=== PATIENT | male | born 1940 | race Caucasian/White ===

== ENCOUNTER 2018-11-01 06:18 | Inpatient (IN) | payer MEDICARE ==
[2018-11-01] MEDS ORDERED: Ondansetron PF 4 MG/2 ML Vial ONE (06:30)
[2018-11-01 06:44] LABS: #Eosinphils 0.1 thou/uL (0.0-0.7); #Lymphocytes 1.1 thou/uL (1.20-3.40); #Monocytes 1.3 thou/uL (0.11-0.59); #Neutrophils 6.9 thou/uL (1.40-6.50); %Basophils 0.2 % (0.0-1.0); %Eosinophils 0.7 % (0.0-10.0); %Lymphocytes 11.4 % (21.0-51.0); %Monocytes 14.2 % (0.0-10.0); %Neutrophils 73.5 % (42.0-75.0); Hemoglobin 16.1 g/dL (14.0-18.0); Mean Corpuscular HGB CONC 33.3 g/dL (32.0-36.0); Mean Corpuscular Hemoglobin 32.3 pg (27.0-31.0); Mean Corpuscular Volume 97.2 fL (78.0-98.0); Mean Platelet Volume 8.9 fL (7.4-10.4); Platelet Count 159 thou/uL (130-400); RBC Distribution Width 12.3 % (11.5-14.5); Red Blood Cell (RBC) Count 4.99 mill/uL (4.70-6.10); White Blood Cell (WBC) Count 9.4 thou/uL (4.8-10.8)
[2018-11-01 07:06] LABS: ALT (SGPT) 36 U/L (8-55); AST (SGOT) 34 U/L (5-34); Albumin 3.7 g/dL (3.4-4.8); Alkaline Phosphatase 79 U/L (40-150); Anion Gap 18 mmol/L (10-20); BUN (Urea Nitrogen) 53 mg/dL (8.4-25.7); Bilirubin, Total 1.5 mg/dL (0.2-1.2); Calc. Creatinine Clearance 0 mL/min (70-130); Calcium 9.1 mg/dL (7.8-10.44); Carbon Dioxide 20 mmol/L (23-31); Chloride 106 mmol/L (98-107); Estimated GFR-MDRD 10; Glucose 125 mg/dL (83-110); Lipase 14 U/L (8-78); Potassium 4.9 mmol/L (3.5-5.1); Protein, Total 6.7 g/dL (5.8-8.1); Sodium 139 mmol/L (136-145)
[2018-11-01] MEDS ORDERED: Benzocaine 20% Spray 60 ML CAN ONE (07:48)
[2018-11-01] MEDS ORDERED: Lidocaine Viscous Sol 2% 15 ml UD Cup ONE (07:48)
--- NOTE | 2018-11-01 08:14 | RAD ---
XR Abdomen 2 View/1 View Cxr Acute abdomen series CLINICAL INDICATION: Pain FINDINGS: Mild linear density at left lung base may relate to atelectasis. No free air. Diffuse, air-filled, dilated small bowel with differential air-fluid levels is present. Metallic clips overlie the right abdomen. No acute osseous pathology. IMPRESSION: Findings indicate mechanical obstruction. Recommend surgical consultation.
--- NOTE | 2018-11-01 09:00 | RAD ---
CHEST 1 VIEW: Date: 11/01/18 HISTORY: NG tube placement. COMPARISON: Radiograph same date. FINDINGS: On the chest radiograph, an enteric tube is seen to the level of the cardiac silhouette, although due to habitus and technique, the distal tip is not well evaluated. Multiple distended loops of bowel in the abdomen. IMPRESSION: 1. Due to technique and habitus, the distal enteric tube tip is not seen. Intra-abdominal location c annot be confirmed. 2. Dilated loops of small bowel suggesting ileus or small bowel obstruction. CT may be beneficial if clinically warranted. POS: CET
[2018-11-01] MEDS ORDERED: Ondansetron ODT 4 MG TAB PO PRN (09:24)
[2018-11-01] MEDS ORDERED: Ondansetron PF 4 MG/2 ML Vial IVP PRN (09:24)
[2018-11-01] MEDS ORDERED: hydrALAZINE 20 MG/ML VIAL SLOW IVP PRN (09:24)
[2018-11-01] MEDS ORDERED: Sodium Chloride 0.45% 1,000 ML IV SCH (09:30)
--- NOTE | 2018-11-01 10:35 | HP ---
HISTORY OF PRESENT ILLNESS: Macho Huston is a 78-year-old male patient, who has for the past 6 days experienced obstipation, abdominal bloating, nausea, and vomiting. He denies diarrhea. He states he had a colonoscopy 10 years ago in [place] that was normal. He was told he did not need to have this repeated. The only operation he has had is a laparoscopic cholecystectomy. He states his bowel function is normal with occasional constipation. He was considering having his knees replaced and underwent a cardiac stress test two weeks ago by his resource manager, Dr. Acosta in [place] and was told the stress test was normal. He has not yet made an appointment to see an orthopedic surgeon regarding his knees. He does not take NSAIDs on a regular basis. The patient reports the emergency room for the above-mentioned complaints and plain abdominal x-rays reveal changes consistent with small bowel distention with diffuse air filled dilated small bowel loops. He does have some apparent gas in his left colon, sigmoid, and rectum. He reports the patient passing occasional flatus. Of all, also interesting finding is his hemoglobin is 16 and white count 9. His sodium was 139, BUN 53, creatinine 5.77, bilirubin is 1.5. GFR 10. ALLERGIES: STATINS AND SULFA. SOCIAL HISTORY: Tobacco, none for 22 years. Alcohol, none. The patient is , his is 85 years of age. He is retired and worked for [employer]. MEDICATIONS: Antihypertensive and occasional Aleve. PAST SURGICAL HISTORY: Laparoscopic cholecystectomy, left carotid endarterectomy, tonsillectomy, wisdom teeth removal, and colonoscopy more than 10 years ago in [place]. PAST MEDICAL HISTORY: Hypertension, coronary artery disease without history of myocardial infarction. He had coronary stents placed 14 years ago in [place]. His resource manager is Dr. Acosta. He had a cardiac stress test two weeks ago and he was told this was normal and it was safe to proceed with any elective surgery for his knees, although he has not sought orthopedic surgeon for that. He was never told that he had any evidence of acute kidney injury or chronic kidney disease. There is no history of diabetes. REVIEW OF SYSTEMS: Ten-point noncontributory except as noted above. PHYSICAL EXAMINATION: VITAL SIGNS: Blood pressure 140/78, respiratory rate 18, and heart rate 78. HEAD, EARS, EYES, NOSE, AND THROAT: Unremarkable. Sclerae nonicteric. SKIN: Nonjaundiced. No edema, peripheral. CARDIAC: Regular rate and rhythm without murmur or gallop. ABDOMEN: Soft, distended, tympanitic, quiet, rare bowel sounds. No guarding. No rebound. No hernias in groin, ventral noted. EXTREMITIES: Palpable pulses. No ankle edema. LABORATORY DATA: As noted above. ASSESSMENT AND PLAN: 1. Small-bowel obstruction versus ileus. He is passing occasional flatus. On plain x-rays, there is evident gas in his left colon and rectum. He, however, does have air-fluid levels and small bowel distention. He could have a mechanical obstruction, but his only significant past surgical history for his abdomen is laparoscopic cholecystectomy, which would be low risk for bowel obstruction. We would plan to continue his NG tube to low intermittent wall suction, hydrate him. Repeat x-rays tomorrow. Consider small-bowel follow-through and/or CAT scan without IV contrast. 2. Acute kidney injury, contacted his resource manager in [place] to check his renal function two weeks ago. Repeat renal function in the morning. Obtain ultrasound of abdomen and kidney to rule out an obstructive component. 3. Hypertension. 4. Coronary artery disease. Stent placed in [place] 14 years ago, stress test two weeks ago, Dr. Acosta in [place]. 5. Obesity. Job ID: [id number]
--- NOTE | 2018-11-01 10:44 | RAD ---
Exam: Abdomen one view HISTORY: Nasogastric tube placement FINDINGS: Nasogastric tube terminates the upper quadrant. Multiple air-filled distended loops of smal l bowel. Paucity of gas in the colon. IMPRESSION: 1. Small bowel obstruction. 2. Nasogastric tube in the epigastric region as described above.
--- NOTE | 2018-11-01 10:46 | ULT ---
Exam: Bilateral renal ultrasound HISTORY: Acute kidney insufficiency. Dehydration. COMPARISON: None FINDINGS: Limited evaluation the kidneys due to bowel gas and body habitus Right kidney: Grossly unremarkable echotexture. Solid mass could easily be obscured. There does appea r to be right-sided hydronephrosis. Right renal cortex is thin. Right kidney measurements: 5.9 x 6.3 x 13.2 cm. Left kidney: Grossly unremarkable cortical echotexture. Limited evaluation the lower pole. No hydrone phrosis. Left kidney measurements 6.6 x 6.1 x 12.7 cm. Urinary bladder: Normal mucosa. IMPRESSION: 1. Moderate right-sided hydronephrosis. 2. Limited evaluation the renal cortices. Correlate clinically.
[2018-11-01 11:00] VITALS: BMI 41.5
[2018-11-01] MEDS: Sodium Chloride 0.45% 1,000 ML IV SCH ×2 (11:00→17:30)
[2018-11-01] MEDS: Heparin 5,000 UNITS/ML VIAL SC SCH (19:46)
[2018-11-01] MEDS: Famotidine/PF 20 mg/2ml Vial SLOW IVP SCH (19:46)
[2018-11-01] MEDS ORDERED: Morphine 2 MG/ML SYRINGE SLOW IVP PRN (20:59)
[2018-11-01] MEDS ORDERED: Morphine 4 MG/ML VIAL SLOW IVP PRN (21:00)
[2018-11-01] MEDS ORDERED: Acetaminophen 1,000 MG in Premix Bag 1 BAG IVPB PRN (21:00)
[2018-11-01] MEDS ORDERED: Ketorolac Tromethamine 30 MG/ML VIAL IVP PRN (21:02)
[2018-11-02] MEDS: Sodium Chloride 0.45% 1,000 ML IV SCH ×4 (00:24→19:56)
[2018-11-02 06:11] LABS: Anion Gap 19 mmol/L (10-20); BUN (Urea Nitrogen) 60 mg/dL (8.4-25.7); Calc. Creatinine Clearance 19 mL/min (70-130); Calcium 8.6 mg/dL (7.8-10.44); Carbon Dioxide 15 mmol/L (23-31); Chloride 106 mmol/L (98-107); Estimated GFR-MDRD 9; Glucose 80 mg/dL (83-110); Potassium 4.9 mmol/L (3.5-5.1); Sodium 135 mmol/L (136-145)
[2018-11-02 06:19] LABS: Band 2 % (5-11); Hemoglobin 16.6 g/dL (14.0-18.0); Lymphocytes 22 % (21-51); MDiff Complete? YES; Mean Corpuscular HGB CONC 33.1 g/dL (32.0-36.0); Mean Corpuscular Hemoglobin 32.2 pg (27.0-31.0); Mean Corpuscular Volume 97.3 fL (78.0-98.0); Mean Platelet Volume 9.5 fL (7.4-10.4); Monocytes 13 % (0-10); Neutrophil 63 % (42-75); Platelet Count 105 thou/uL (130-400); Platelet Morphology Comment Appears Decreased; RBC Distribution Width 12.3 % (11.5-14.5); RBC Morphology Normal; Red Blood Cell (RBC) Count 5.15 mill/uL (4.70-6.10); White Blood Cell (WBC) Count 7.8 thou/uL (4.8-10.8)
[2018-11-02] MEDS ORDERED: Sodium Chloride 0.9% 1,000 ML IV SCH (10:00)
--- NOTE | 2018-11-02 11:01 | RAD ---
ABDOMEN 2 VIEWS: Date: 11/02/18 HISTORY: Follow-up small bowel obstruction. COMPARISON: 11/01/18. FINDINGS: A NG tube is coiled within the stomach. There are some persistently dilated large and small bowel wit h scattered air fluid levels, concerning for obstruction. There are some opaque densities overlying t he region of the left kidney, evidence for renal calculi. It is conceivable that one of these calcifi cations could be within the renal pelvis or even upper ureter. No evidence for free intraperitoneal a ir. IMPRESSION: Persistent abnormally dilated small bowel with air fluid levels, as well as dilated right and transve rse colon. Consider follow-up Gastrografin small bowel for further assessment in regards to possible obstruction. 2. Several circumscribed opacities overlying the region of the left kidney, possibly renal pelvic or upper left ureteral calculi. If there is concern for acute obstruction calculus, then a follow-up CT scan without IV contrast might be considered. 3. No free intraperitoneal air. 4. Stable appearing minimal parenchymal changes in the right lung base. POS: TPC
[2018-11-02] MEDS ORDERED: MD-Gastroview 120 ML BOT ONE (11:04)
[2018-11-02] MEDS: Heparin 5,000 UNITS/ML VIAL SC SCH (12:27)
--- NOTE | 2018-11-02 14:27 | RAD ---
Exam: Gastrografin small bowel HISTORY: Evaluate for small bowel obstruction Comparison: None. : Gastrografin opacifies multiple distended loops of small bowel. Gastrografin does pass from the small bowel and opacify the colon at 2 1/2 hours. IMPRESSION: Distended small bowel loops suggesting a partial obstructive process. High-grade obstruct ion is not appreciated given the passage of contrast into the right hemicolon. Transcribed Date/Time: 11/02/2018 2:40 PM
--- NOTE | 2018-11-02 18:07 | CT ---
CT OF THE ABDOMEN AND PELVIS WITHOUT IV CONTRAST INDICATION: History of abdominal distention and pain COMPARISON: Renal ultrasound dated November 01, 2018 FINDINGS: The lack of IV contrast limits evaluation of the solid organs of the abdomen and pelvis. ABDOMEN: Lung bases: Clear Liver: No focal lesion. Gallbladder: Surgically absent Pancreas: Normal. Adrenal glands: Normal. Spleen: Normal. Kidneys: There is stable moderate right hydronephrosis. There is a 2 mm stone involving the inferior pole of the right kidney. There is a 1.1 x 1.1 cm stone within the distal right ureter as it crosses the right common iliac vasculature. The right kidney is atrophic with diffuse renal cortical thinning. Additional suspected tiny 2 to 3 mm stones are seen involving the right posterior lateral aspect of the bladder. There is a 0.95 x 1.4 cm stone at the left UPJ causing mild left hydronephrosi s. There is a 4 mm stone involving the lower pole of the left kidney. Left kidney appears normal in size. Retroperitoneum of the upper abdomen: No lymphadenopathy or free fluid is identified. Additional findings: None. Pelvis: Small and large bowel: There is mild distention of loops of small and large bowel some of her may be related to distention from the patient's enteric contrast. Bladder: There are 3-4 small stones within the posterolateral aspect of the bladder. Rectal and perirectal soft tissues:Normal. Reproductive structures: Prostate is enlarged measuring 5.5 cm Free fluid in pelvis: No free fluid is evident. Lymphadenopathy pelvis: No lymphadenopathy is evident. Osseous structures: No acute osseous abnormality. No destructive osteolytic or osteoblastic lesion i s identified. There is scattered degenerative and osteoarthritic changes. IMPRESSION: 1. Mid to distal right ureteral stone with stable moderate right hydronephrosis. 2. Atrophic right kidney may be related to long-standing obstruction. 3. Left UPJ stone causing mild left hydronephrosis. 4. Bilateral nephrolithiasis. 5. Small stones within the bladder may reflect recently passed stones or small bladder stones. 6. Prostate enlargement. 7. Mild distention of loops of small large may reflect ileus or artifact from excessive distention of the bowel from the patient's enteric contrast. 8. Findings discussed with Dr. Colon at 6:00 PM on November 02, 2018.
--- NOTE | 2018-11-02 19:03 | PRG ---
DATE OF SERVICE: 11/02/2018 Macho Huston is doing well today. Overnight, his NG tube had put out 230 mL. The patient feels a little better today. White count 7.8, hemoglobin 16. His sodium is 135, potassium 4.9, GFR 9, creatinine 6, BUN 60. Renal ultrasound suggest possible hydronephrosis right with renal calculi. LUNGS: Clear to auscultation. CARDIAC: Regular rate and rhythm without murmur or gallop. ABDOMEN: Soft, obese, protuberant, tympanitic, distended. EXTREMITIES: Unremarkable. The patient underwent x-rays suggestive of obstruction. He underwent a Gastrografin small-bowel follow-through through his NG tube was well tolerated. He had transit time to his colon within 2.5 hours. Suggestive of partial obstructive, although not high grade. The patient has had a large bowel movement, feels somewhat better. The patient subsequently had a CAT scan ordered without IV contrast to view his kidneys. This reveals a mid to distal right ureteral stone. Stable moderate right hydronephrosis, atrophic right kidney perhaps due to long-standing obstruction. Left UPJ stone causing mild left hydronephrosis bilateral nephrolithiasis, small stones within the bladder, prostate enlargement, findings consistent with ileus. Urology has been consulted and also consulted Nephrology. The patient is not oliguric. He is making urine, 950 mL yesterday. He was given a fluid bolus today, IV fluids 150 mL per hour. He does not need dialysis yet. Dr. Antoine will be following him. Hopefully, I did talk to the patient's national facilities manager 2 weeks ago, saw him and his renal function was completely normal at that time. His cardiac stress test 2 weeks ago was normal performed in another city. Job ID: [id number]
[2018-11-02] MEDS: Famotidine/PF 20 mg/2ml Vial SLOW IVP SCH (19:52)
--- NOTE | 2018-11-03 01:54 | CON ---
DATE OF CONSULTATION: 11/02/2018 REASON FOR CONSULT: Hydronephrosis, renal insufficiency. HISTORY OF PRESENT ILLNESS: Mr. Huston is a pleasant 78-year-old male with history of hypertension, coronary artery disease without prior history of [place], who is admitted by Dr. Pack due to small bowel obstruction, ileus. He was managed with NG tube, conservative observation, and this is resolving and his NG tube was removed, currently on clears. He has been passing small amount of gas, tolerating clears uneventfully. Due to renal insufficiency, Nephrology was consulted. This prompted a renal ultrasound demonstrating moderate right hydronephrosis, left kidney unremarkable on ultrasound. He denies prior history of renal failure nor history of kidney stones. Relates that he saw urologist about 5 years ago in [place], Dr. Ng. There was a per patient a check, they told him that he may have a kidney stone, did see the urologist Dr. Ng and told that there was no stone of concern. He denies history of obvious flank pain, however, states that he has had chronic back pain for years. Due to abdominal bloating and discomfort with obstipation, he presented to be admitted. Currently, he is resting comfortably. I did order a stat CT scan based on a consultation with renal insufficiency, demonstrating bilateral ureteral calculi. Results have been discussed at bedside with the patient. He denies obstructive urinary symptoms, dysuria, gross hematuria, nor prior BPH, medical or surgical treatment or surgery for prostate cancer. PAST MEDICAL HISTORY: Includes hypertension, coronary artery disease with recent stress test 2 weeks ago by his nurse esthetician in [place], Dr. Acosta, history of neurogenic claudication followed by Dr. Snyder, lumbar spondylolisthesis causing chronic back pain. PAST SURGICAL HISTORY: Cardiac stent 14 years ago in [place], laparoscopic cholecystectomy, left carotid endarterectomy, tonsillectomy, wisdom teeth, colonoscopy more than 10 years ago in [place]. ALLERGIES: STATIN AND SULFA. SOCIAL HISTORY: Prior history of tobacco, quit 22 years ago. Denies alcohol. He is a retired and worked for [employer]. He is . His is 85 years old. Lives in private residence with his . HOME MEDICATIONS: Include BPH medication and occasional Aleve. CURRENT MEDICATIONS: 1. He was on Toradol, which I discontinued immediately. 2. He is on Tylenol. 3. DuoNeb. 4. Pepcid. 5. Heparin subcu. 6. Apresoline. 7. Morphine. 8. Zofran p.r.n. 9. Saline for IV fluids. PHYSICAL EXAMINATION: VITAL SIGNS: His vital signs are stable. He is resting comfortably. He is afebrile, blood pressure 160/72, urine output 950 mL, prior NG tube 230. GENERAL: The patient appears to be in no acute distress. HEENT: Grossly unremarkable. HEART: Regular rate. LUNGS: Clear. ABDOMEN: Morbidly obese, protuberant. No rigidity, no rebound. : Circumcised phallus. Meatus is grossly unremarkable. Testes are descended with no evidence of intratesticular mass. Digital rectal exam is somewhat suboptimal due to his morbid obesity, however, I do not appreciate obvious nodularity of concern. PERTINENT LABORATORY AND IMAGING DATA: White count 7.8, hemoglobin 16, platelet 105, BUN 60, creatinine 6.0. Admitting creatinine is site 5.7. We do not have any prior renal function tests. There is no urinalysis and specimen collected, which I ordered. Renal ultrasound demonstrating moderate right hydronephrosis. Right kidney measures 5.9 x 6.3 cm. Left kidney measures 6.6 x 6.1 x 12 cm with no evidence of left hydronephrosis. Bladder is grossly unremarkable with prevoid bladder volume 167 mL with no significant mass per my review. CT of the abdomen and pelvis stone protocol dated 11/02/2018, demonstrates stable moderate right hydronephrosis, 2 mm stone in the right lower pole, a 1.1 x 1.1 cm stone in the distal right ureter at the level of the inferior SI joint as it crosses the common iliac vasculature. The right kidney is atrophic with diffuse renal cortical thinning. There is tiny punctate stones in the bladder, presumed to past kidney stones. There is a 1 cm x 1.4 cm left UPJ stone causing mild hydronephrosis, 4 mm left lower pole stone. Left kidney is unremarkable in size. No retroperitoneal lymphadenopathy, 3-4 tiny stones in the bladder, punctate. Per my review, prostate measures 5.5 x 4.0 x 3 cm with volume estimated to be 40 g. Mild distention of the loops of small bowel reflecting ileus. IMPRESSION: Mr. Huston is a pleasant 78-year-old male with past medical of: 1. Hypertension. 2. Coronary artery disease status post stent 14 years ago with a recent cardiac stress test 2 weeks ago, negative per patient to proceed with elective surgery of his knee, presents with ileus, resolving. The patient tolerating clears. 3. Renal insufficiency, unclear in chronicity, likely has baseline renal insufficiency, multifactorial, acute kidney injury. 4. CT demonstrating atrophic right kidney, left kidney unremarkable in size, bilateral ureteral stone burden and kidney stone burden as above. I discussed with the patient in lengthy detail regarding CT findings. Recommend cysto, attempt right stent placement, left ureteral stent placement. Due to the high-grade obstruction of the right kidney and atrophic kidney, I informed the patient that I may not be able to proceed with the ureteral stent, if it has been present for quite some time with atrophic right kidney. If I am able to stent easily, then I will proceed to do stone stent post size and monitor for renal function recovery. If significant difficulty putting in the right stent, certainly I will discuss with Interventional Radiology; however, given his body habitus, an atrophic kidney, percutaneous nephrostomy tube of the right kidney may be cumbersome. He desires to proceed with bilateral ureteral stent attempt tomorrow. Risks and complications including bleeding, pain, infection, injury to adjacent organs, ureteral, bladder, kidney injury, sepsis, PE, DVT, reviewed in detail. He desires to proceed. Questions answered and encouraged. Please avoid all nephrotoxins including NSAIDs, Levaquin on-call to OR. Hold heparin. We will obtain EKG for preop. Job ID: [id number] [facility]
[2018-11-03] MEDS: Sodium Chloride 0.45% 1,000 ML IV SCH ×3 (03:33→23:55)
[2018-11-03 05:20] LABS: Bacteria/HPF None Seen HPF (None Seen); Squamous Epithelial None Seen HPF (0-3); WBC/HPF 0-3 HPF (0-3)
[2018-11-03] MEDS ORDERED: Sodium Chloride 0.45% 1,000 ML IV SCH (07:33)
--- NOTE | 2018-11-03 08:17 | PRG ---
DATE OF SERVICE: 11/03/2018 SUBJECTIVE: The patient without complaints. Denies flank pain. OBJECTIVE: VITAL SIGNS: Stable. Afebrile. Is and Os 2340 in, 250 out. He is positive 2 L. ABDOMEN: Obese, protuberant. No rigidity. No rebound. No CVA tenderness. PERTINENT LABORATORY DATA: Yesterday, his CBC parameters are grossly unremarkable. There is are recent no current labs this morning. IMPRESSION AND PLAN: Mr. Huston is a 78-year-old male, currently admitted for, 1. Small bowel obstruction, ileus, resolved. 2. Renal insufficiency. 3. CT demonstrating bilateral ureteral calculi with right atrophic kidney, large bilateral ureteral stone burden present. The patient is n.p.o. for cystoscopy, attempts of bilateral retrograde stents. A formal UA was not obtained despite the order. We will re-send UA, C and S. Recheck a.m. labs. Job ID: [id number]
--- NOTE | 2018-11-03 09:01 | CON ---
DATE OF CONSULTATION: 11/02/2018 CONSULTING PHYSICIAN: Irvin Pack MD REASON FOR CONSULT: Acute kidney injury. REASON FOR ADMISSION: Abdominal bloating, nausea, vomiting. HISTORY OF PRESENT ILLNESS: This is a 78-year-old male with history of coronary artery disease, hypertension, came to the hospital with above complaints and was found to have acute kidney injury, Dr. Pack called us. No chest pain. He is feeling better. get better. He also had mild right-sided hydronephrosis. No chest pain or palpitation. PAST MEDICAL HISTORY: Positive for hypertension, coronary artery disease history. PAST SURGICAL HISTORY: Cholecystectomy, carotid endarterectomy, tonsillectomy, cardiac stent. HOME MEDICATIONS: Include; 1. Vitamin D. 2. Pepcid. 3. Timolol. 4. Metoprolol. ALLERGIES: TO SULFA, STATINS. SOCIAL HISTORY: No smoking, alcohol, or illicit drugs. FAMILY HISTORY: No history of kidney disease. REVIEW OF SYSTEMS: CONSTITUTIONAL: Negative for weight loss or gain, ability to conduct usual activities. SKIN: Negative for rash, itching. EYES: Negative for double vision, pain. ENT/MOUTH: Negative for nose bleeding, neck stiffness, pain, tenderness. CARDIOVASCULAR: Negative for palpitations, dyspnea on exertion, orthopnea. RESPIRATORY: Negative for shortness of breath, wheezing, cough, hemoptysis, fever or night sweats. GASTROINTESTINAL: Negative for poor appetite, abdominal pain, heartburn, nausea, vomiting, constipation, or diarrhea. GENITOURINARY: Negative for urgency, frequency, dysuria, nocturia. MUSCULOSKELETAL: Negative for pain, swelling. NEUROLOGIC/PSYCHIATRIC: Negative for anxiety, depression. ALLERGY/IMMUNOLOGIC: Negative for skin rash, bleeding tendency. Rest are negative review of systems. PHYSICAL EXAMINATION: GENERAL: This is an obese male, in no apparent distress. VITAL SIGNS: Temperature 98.0, pulse 106, respiratory rate 18, blood pressure 164/79. HEENT: Atraumatic, normocephalic. Oral mucosa moist. NECK: Supple. CV: S1 and S2 heard. Regular rate and rhythm. RESPIRATORY regular. RESPIRATORY: Clear. GASTROINTESTINAL: Abdomen is soft. MUSCULOSKELETAL: 1+ edema. DERMATOLOGIC: No skin rash. NEUROLOGIC: Alert and awake. PSYCHIATRIC: Mood and affect normal. LABORATORY DATA: Hemoglobin 16.6, potassium is 4.9, BUN is 60, creatinine 6.03. ASSESSMENT AND PLAN: 1. Acute kidney injury, most likely from volume depletion. Agree with hydration. 2. Obstructive uropathy. Plan is to consult Urology. Dr. Pack is also aware the patient has moderate right-sided hydronephrosis. 3. Edema, controlled. 4. Hypertension, stable. 5. hemoglobin stable. 6. . No acute indication for dialysis. Continue hydration and we will follow. Thank you for the consult. Job ID: [id number]
[2018-11-03 09:29] LABS: Anion Gap 16 mmol/L (10-20); BUN (Urea Nitrogen) 66 mg/dL (8.4-25.7); Calc. Creatinine Clearance 18 mL/min (70-130); Calcium 8.8 mg/dL (7.8-10.44); Carbon Dioxide 17 mmol/L (23-31); Chloride 108 mmol/L (98-107); Estimated GFR-MDRD 9; Glucose 84 mg/dL (83-110); Potassium 4.4 mmol/L (3.5-5.1); Sodium 137 mmol/L (136-145)
[2018-11-03] MEDS ORDERED: Lidocaine 1% PF 5 ML VIAL ONE (11:19)
[2018-11-03] MEDS ORDERED: PROPOFOL 200 MG/20 ML VIAL ONE (11:19)
[2018-11-03] MEDS ORDERED: Dexamethasone 20 MG/5 ML VIAL ONE (11:19)
[2018-11-03] MEDS ORDERED: PHENYLEPHRINE-NS 100 MCG/ML 10 ML SYRINGE ONE (11:19)
[2018-11-03] MEDS ORDERED: Ondansetron PF 4 MG/2 ML Vial ONE (11:19)
[2018-11-03] MEDS ORDERED: Levofloxacin 500 mg/D5W 100 ml Premix Bag ONE (12:23)
[2018-11-03] MEDS ORDERED: Iothalamate Meglumine 60% 50 ML VIAL FS ONE (13:09)
--- NOTE | 2018-11-03 13:09 | PRG ---
DATE OF SERVICE: 11/03/2018 SUBJECTIVE: Macho Huston is going to have cystoscopy today with Dr. Colon to relieve his ureteral obstructions and nephrolithiasis. The patient feels better. He has not had any nausea or vomiting yesterday. He tolerated liquids well last night. OBJECTIVE: VITAL SIGNS: Temperature 97.8 degrees, heart rate 87, blood pressure 162/80. LUNGS: Clear to auscultation. No wheezing. CARDIAC: Regular rate and rhythm. ABDOMEN: Soft, obese, protuberant, slightly tympanitic, but much less so than admission. EXTREMITIES: Unremarkable. No significant ankle edema. LABORATORY DATA: Basic metabolic profile today; sodium 137, potassium 4.4, BUN 66, creatinine 6.21, GFR 9. He has been urinating. Volume is unrecorded. ASSESSMENT AND PLAN: Acute kidney injury. Of note is I talked to his car installations supervisor's office, where he was seen as an outpatient 2 weeks prior to this hospitalization. His renal function was normal. Cardiac stress test was normal. We would plan to continue current hydration. We would advance him to full liquids, possibly a renal diet tomorrow. Continue to monitor his progress. I have discussed with Nephrology, Dr. Antoine, and there is no need for dialysis at this time. We hope for renal recovery. Job ID: [id number]
[2018-11-03] MEDS ORDERED: Fentanyl 100 MCG/2 ML VIAL ONE (13:13)
[2018-11-03] MEDS ORDERED: Promethazine HCl 25 MG/ML VIAL SLOW IVP PRN (14:09)
[2018-11-03] MEDS ORDERED: Promethazine HCl 25 MG/ML VIAL IM PRN (14:09)
[2018-11-03] MEDS ORDERED: PACU-Morphine 4MG/ML VIAL SLOW IVP PRN (14:09)
[2018-11-03] MEDS ORDERED: Oxybutynin 5 MG TAB PO PRN (14:29)
[2018-11-03] MEDS ORDERED: hydrALAZINE 20 MG/ML VIAL ONE (14:47)
--- NOTE | 2018-11-03 15:55 | PRG ---
DATE OF SERVICE: 11/03/2018 SUBJECTIVE: Patient was seen and examined at bedside and overnight events noted. Patient denies any shortness of breath or chest pain or palpitation. No history of nausea or vomiting or diarrhea or fever or chills or cramps. OBJECTIVE: GENERAL: This is an obese male, in no apparent distress. VITAL SIGNS: Temperature . Heart rate 87. Respiratory rate . Blood pressure 162/80. HEENT: Atraumatic, normocephalic. Oral mucosa is moist NECK: Supple. CARDIOVASCULAR: S1, S2 heard. Rate and rhythm regular. RESPIRATORY: Clear to auscultation. GASTROINTESTINAL: Abdomen is soft. MUSCULOSKELETAL: No tenderness. No edema. DERMATOLOGIC: No skin rash. NEUROLOGIC: Alert and awake and oriented X3. No focal neurologic deficits. Moving all the extremities. PSYCHIATRIC: Mood and affect normal. LABORATORY DATA: Potassium is 4.4, BUN is 66, and creatinine is 6.21. ASSESSMENT AND PLAN: 1. Acute kidney injury, most likely secondary to obstructive uropathy. Urology on case. 2. Obstructive uropathy. Follow with Urology. 3. Edema, controlled. 4. Hypertension. We will reduce IV fluids to 75 mL/hour with close monitor. Follow up with Urology for further plans. Monitor renal function and urine output. We will follow. Job ID: [id number]
--- NOTE | 2018-11-03 16:18 | RAD ---
RETROGRADE PYELOGRAM: Date: 11/03/18 HISTORY: Hydronephrosis. FINDINGS: A single radiograph from a retrograde pyelogram is provided. There is contrast media within an incomp letely assessed left renal collecting system. There is mild blunting of the calices on the left sugge sting a degree of obstructive uropathy. There is faint increased density in the right hemipelvis whic h may represent contrast media within the bowel. IMPRESSION: Limited left-sided pyelogram as above. POS: TPC
--- NOTE | 2018-11-03 20:01 | OP ---
DATE OF PROCEDURE: 11/03/2018 PREOPERATIVE DIAGNOSES: 1. Acute renal failure. 2. Right distal ureteral calculi with atrophic right kidney, left proximal ureteropelvic junction stone with mild hydronephrosis. 3. Moderate right hydronephrosis. 4. Small-bowel obstruction, resolving. POSTOPERATIVE DIAGNOSES: 1. Acute renal failure. 2. Right distal ureteral calculi with atrophic right kidney, left proximal ureteropelvic junction stone with mild hydronephrosis. 3. Moderate right hydronephrosis. 4. Small-bowel obstruction, resolving. PROCEDURES PERFORMED: Cystoscopy, bilateral retrograde pyelogram, left 6 x 28 double-J ureteral stent, and attempted right ureteral stent. ANESTHESIA: LMA. COMPLICATIONS: None apparent. DISPOSITION: To recovery room in stable condition. INDICATIONS FOR PROCEDURE AND HISTORY: Mr. Huston is a 78-year-old male, admitted for small-bowel obstruction, found to have renal insufficiency/failure. Nephrology obtained a renal ultrasound demonstrated moderate right hydronephrosis, left kidney unremarkable. CT staging demonstrated right moderate hydro, left mild hydro with high-grade right ureteral obstruction due to large ureteral stone, and left UPJ stone. The patient denied having significant flank pain, however, has chronic back pain. He was advised regarding cysto bilateral stent. Preoperative imaging demonstrates right atrophic kidney, and a large right mid ureteral calculi, I informed the patient that given morphology an atrophic nature of the kidney, right ureteral stent may be very difficult to place, as it appears to be chronically impacted ureteral calculi. Indications for attempted stent reviewed and he desired to proceed. DESCRIPTION OF PROCEDURE: After an informed consent was signed, the patient was taken to the operating room, placed in a dorsal lithotomy position with the genital area prepped and draped in the usual surgical sterile fashion. Bilateral JOSE CARLOS hose, SCDs, and broad-spectrum antibiotics were provided. A 21-Citizen [place] cystoscope was utilized for cystoscopy, which demonstrated normal anterior urethra. There was a subtle bulbar stricture early, however, nonobstructing. This was passed without difficulty. The prostatic urethra entered demonstrating supra verumontanal length of approximately 4 to 5 cm with moderate obstructing lobe, high median bar with no evidence of intravesical median lobe. Bladder was entered, which demonstrated tiny bladder calculi consistent with the CAT scan. The UOs were identified bilaterally. The right UO was mildly patulous. Left UO demonstrated to be somewhat small in caliber. The bilateral UOs were approximately 2 to 3 mm proximal to the bladder neck. We intubated the left UO with a 0.35 Sensor wire. We were able to pass a wire to the left upper pole without significant issue. An open-ended catheter was passed to the level proximal to the stone into the renal pelvis, and a retrograde pyelogram was performed opacifying the collecting system. A 6 x 28 double-J ureteral stent was passed without difficulty. Although, there was redundancy in the proximal coil, it was in good position draining. There was moderate amount of efflux debris with the ureteral stent with some hematuria component as he has been on heparin. At this time, we intubated the right UO with an open-ended catheter and retrograde pyelogram demonstrated high-grade obstruction. It was difficult to opacify contrast proximal to the stone consistent with high-grade chronic obstructive component. Minimal contrast was seen proximal to this. We tried multiple attempts to pass various wires including 0.35 Sensor wire, angled wire, even lubricating the retrograde with some 1-1 diluted viscous lidocaine for lubrication. Attempt was made a few more times, however, would not pass. Therefore, decision was made to terminate attempting the right ureteral stent as it was impassable. He does have moderate BPH. We will start him on BPH medications. A 20-[place]izen [place] 10 mL Ovalles catheter was inserted, attached to gravity bag. He will be transitioned back to the floor and monitor his kidney function and urine output. I will discuss with Interventional Radiology later today or tomorrow morning for attempts of a right nephrostomy tube. Heparin will be held. Job ID: [id number] [facility]
[2018-11-03] MEDS: Timolol 0.25% Ophth Soln 5 ml Bottle EA EYE SCH (20:28)
[2018-11-04 06:14] LABS: #Lymphocytes 0.9 thou/uL (1.20-3.40); #Monocytes 0.5 thou/uL (0.11-0.59); #Neutrophils 7.2 thou/uL (1.40-6.50); %Eosinophils 0.1 % (0.0-10.0); %Lymphocytes 10.1 % (21.0-51.0); %Monocytes 5.9 % (0.0-10.0); Mean Corpuscular Hemoglobin 32.1 pg (27.0-31.0); Mean Platelet Volume 8.9 fL (7.4-10.4); Platelet Count 170 thou/uL (130-400); RBC Distribution Width 12.3 % (11.5-14.5); Red Blood Cell (RBC) Count 4.68 mill/uL (4.70-6.10); White Blood Cell (WBC) Count 8.6 thou/uL (4.8-10.8)
[2018-11-04 06:20] LABS: INR-International Normal Ratio 1.1; PTT 30.7 SEC (22.9-36.1); Prothrombin Time 14.2 SEC (12.0-14.7)
[2018-11-04 06:34] LABS: Anion Gap 14 mmol/L (10-20); BUN (Urea Nitrogen) 45 mg/dL (8.4-25.7); Calc. Creatinine Clearance 35 mL/min (70-130); Calcium 9.1 mg/dL (7.8-10.44); Carbon Dioxide 20 mmol/L (23-31); Chloride 110 mmol/L (98-107); Estimated GFR-MDRD 19; Glucose 99 mg/dL (83-110); Potassium 4.7 mmol/L (3.5-5.1); Sodium 139 mmol/L (136-145)
[2018-11-04] MEDS: Sodium Chloride 0.45% 1,000 ML IV SCH ×2 (07:50→15:35)
--- NOTE | 2018-11-04 08:02 | PRG ---
DATE OF SERVICE: 11/04/2018 SUBJECTIVE: Patient feels well, he states that he feels significantly better, than he has had in the last few months. OBJECTIVE: VITAL SIGNS: Stable. He is afebrile. I's and O's: 2150 in, 3550 out, he is negative 1.8 L. ABDOMEN: Morbidly obese, soft. No rigidity. No rebound. : Ovalles catheter remains in situ with pink-tinged hematuria. PERTINENT LABORATORY DATA: White count is 8, hemoglobin 15, platelet 170. BUN 45, creatinine has decreased from 6.21 to 3.22, potassium is grossly unremarkable. Although a formal urinalysis was ordered limited urinalysis microscopy performed demonstrating 4-6 rbc's, there is a culture in lab, not yet finalized. IMPRESSION AND PLAN: Mr. Huston is a pleasant 78-year-old male with; 1. History of coronary artery disease, currently admitted for small bowel obstruction, ileus resolved. 2. Acute renal failure. 3. Bilateral ureteral calculi, dimensions as previous CT indicated. Postop day #1, status post bilateral retrograde, attempted right ureteral stent, unable to place due to high-grade chronic obstruction, successful left ureteral stent placement. His renal insufficiency, renal parameters have significantly improved with stenting of his main moiety left. Long discussion with patient at bedside last night and again today regarding options of nephrostomy tube so that we may assess the functionality of his atrophic right kidney. Clinically, due to high-grade obstruction, moreover no significant right flank pain, it is likely that he has limited function of his right kidney. However, options of nephrostomy tube, allowing to drain the right kidney and to assess with renal scan at a later date to assess for functionality was reviewed. He declines nephrostomy tube placement. He has been fully informed regarding options, however, given his age, and moreover findings of chronic right atrophic kidney, he foregoes decision to proceed with right nephrostomy tube, which I agree with him and is reasonable approach given his age and improvement of his renal function of stenting of his left renal moiety. Therefore, will observe the patient overnight with following his renal function status. I do recommend indwelling Ovalles to continue for now, he does have benign prostatic hyperplasia component on cystoscopy, continue dual medical therapy. Pending reassessment tomorrow, from urologic perspective, he will most likely be cleared to be discharged tomorrow if it is okay with Dr. Pack. Plan elective treatment of his left ureteral calculi in few weeks. Job ID: [id number] [facility]
[2018-11-04] MEDS: Dutasteride 0.5 MG CAP PO SCH (08:45)
[2018-11-04] MEDS: Famotidine 20 MG TAB PO SCH (08:46)
[2018-11-04] MEDS: Metoprolol Tartrate 25 MG TAB PO SCH (08:46)
[2018-11-04] MEDS: Tamsulosin HCl 0.4 MG CAP PO SCH (08:46)
[2018-11-04] MEDS ORDERED: PROSTAGENIX PO SCH (09:00)
--- NOTE | 2018-11-04 11:00 | PRG ---
DATE OF SERVICE: 11/04/2018 SUBJECTIVE: Patient was seen and examined at bedside and overnight events noted. Patient denies any shortness of breath or chest pain or palpitation. No history of nausea or vomiting or diarrhea or fever or chills or cramps. OBJECTIVE: GENERAL: This is a well-built male, in no apparent distress. VITAL SIGNS: Temperature 98.3. Heart rate 92. Respiratory rate 18. Blood pressure 145/81. HEENT: Atraumatic, normocephalic. Oral mucosa is moist NECK: Supple. CARDIOVASCULAR: S1, S2 heard. Rate and rhythm regular. RESPIRATORY: Clear to auscultation. GASTROINTESTINAL: Abdomen is soft. MUSCULOSKELETAL: No tenderness. No edema. DERMATOLOGIC: No skin rash. NEUROLOGIC: Alert and awake and oriented X3. No focal neurologic deficits. Moving all the extremities. PSYCHIATRIC: Mood and affect normal. LABORATORY DATA: Potassium is 4.7, BUN is 45, and creatinine is 3.2. ASSESSMENT AND PLAN: 1. Acute kidney injury, getting better. 2. Obstructive uropathy. Follow with Urology, seems like left-sided renal function is getting better. 3. Atrophic right-sided kidney. 4. Edema, controlled. 5. Hypertension. Continue hydration. Follow with Urology for further plans and renal function getting better. We will follow. Job ID: [id number]
[2018-11-04] MEDS: Levofloxacin 500 mg/D5W 250 MG in Premix Bag 1 BAG IVPB SCH (11:53)
[2018-11-04] MEDS: Timolol 0.25% Ophth Soln 5 ml Bottle EA EYE SCH (20:02)
--- NOTE | 2018-11-04 20:50 | PRG ---
DATE OF SERVICE: 11/04/2018 SUBJECTIVE: Macho Huston is doing well today. He is tolerating his diet. He is without fever. OBJECTIVE: VITAL SIGNS: Temperature 98.1 degrees, blood pressure 129/73. ABDOMEN: Soft and nontender. LABORATORY DATA: This morning, his white count is 8 and hemoglobin 15. His BUN is markedly improved to 45, down from 66; creatinine 3.22; GFR 19; potassium 4.7. Urine output is copious. ASSESSMENT AND PLAN: 1. Resolved ileus. Atrophic right kidney with chronic obstruction. 2. Decompressed left kidney with Dr. Tres Salmeron performing cystoscopy, bilateral pyelograms, and double-J ureteral stent. The patient overall is doing well and anticipate he may be able to be discharged home tomorrow. Job ID: [id number]
[2018-11-05] MEDS: Sodium Chloride 0.45% 1,000 ML IV SCH ×2 (01:08→09:37)
[2018-11-05 06:00] LABS: Anion Gap 11 mmol/L (10-20); Calcium 8.5 mg/dL (7.8-10.44); Carbon Dioxide 16 mmol/L (23-31); Chloride 115 mmol/L (98-107); Potassium 4.3 mmol/L (3.5-5.1); Sodium 138 mmol/L (136-145)
[2018-11-05 06:09] LABS: BUN (Urea Nitrogen) 34 mg/dL (8.4-25.7); Calc. Creatinine Clearance 60 mL/min (70-130); Estimated GFR-MDRD 34; Glucose 83 mg/dL (83-110)
--- NOTE | 2018-11-05 08:09 | PRG ---
DATE OF SERVICE: 11/05/2018 SUBJECTIVE: The patient without complaints, doing well. OBJECTIVE: VITAL SIGNS: Stable. He has had consistent bowel movements over the last few days, I's and O's include 4540 in and 3725 out. He is positive 800 mL. Oral intake is sufficient at 1800 mL. ABDOMEN: Morbidly obese, protuberant, soft. : Ovalles catheter demonstrating red-tinged urine, with tiny clots. LABORATORY DATA: No new recent CBC. BMP today demonstrates creatinine is significantly improved to 1.9. Admitting creatinine is 6.2. Urine culture preliminary negative. IMPRESSION AND PLAN: Mr. Huston is a pleasant 78-year-old male with; 1. History of coronary artery disease, recent cardiac clearance with his litigation examiner in [place]. 2. Currently admitted for small bowel obstruction, ileus, resolved. 3. Acute renal failure, resolving. 4. History of bilateral ureteral calculi. CT demonstrating chronic obstructed right kidney, atrophic, unable to place right ureteral stent, has contralateral large left UPJ stone postop day #2 status post cysto, left retrograde stent placement. As previous, the patient has been previously advised regarding trial of right nephrostomy tube. He declines. Which is reasonable given the right kidney is unlikely contributing significant percentage of total renal function as his creatinine is significantly improved by stenting his left kidney. I did remove his Ovalles catheter today for voiding trial. Cystoscopy did demonstrate moderate BPH. He is to continue his Flomax, Avodart. I recommend Levaquin for 7 days. Pending voiding trial, patient can be discharged home this afternoon from urologic perspective. Appointment has been provided and elective ureteroscopy of his left large UPJ ureteral calculi is advised. Outpatient appointment in chart November 18 at 9:30 a.m. will sign off. Addendum, check postvoid residual prior to discharge, PVR minimal 78 mL. Job ID: [id number] [facility]
[2018-11-05] MEDS: Dutasteride 0.5 MG CAP PO SCH (09:36)
[2018-11-05] MEDS: Metoprolol Tartrate 25 MG TAB PO SCH (09:37)
[2018-11-05] MEDS: Famotidine 20 MG TAB PO SCH (09:37)
[2018-11-05] MEDS: Tamsulosin HCl 0.4 MG CAP PO SCH (09:37)
--- NOTE | 2018-11-05 10:45 | PRG ---
DATE OF SERVICE: 11/05/2018 SUBJECTIVE: Patient was seen and examined at bedside and overnight events noted. Patient denies any shortness of breath or chest pain or palpitation. No history of nausea or vomiting or diarrhea or fever or chills or cramps. OBJECTIVE: GENERAL: This is a well-built male, in no apparent distress. VITAL SIGNS: Temperature 98.7. Heart rate 83. Respiratory rate 20. Blood pressure 156/82. HEENT: Atraumatic, normocephalic. Oral mucosa is moist NECK: Supple. CARDIOVASCULAR: S1, S2 heard. Rate and rhythm regular. RESPIRATORY: Clear to auscultation. GASTROINTESTINAL: Abdomen is soft. MUSCULOSKELETAL: No tenderness. No edema. DERMATOLOGIC: No skin rash. NEUROLOGIC: Alert and awake and oriented X3. No focal neurologic deficits. Moving all the extremities. PSYCHIATRIC: Mood and affect normal. LABORATORY DATA: Potassium 4.3, BUN is 34, and creatinine is 1.9. ASSESSMENT AND PLAN: 1. Acute kidney injury on chronic kidney disease, stage 3, much better. 2. Obstructive uropathy. 3. Right-sided atrophic kidney. 4. Edema, controlled. 5. Hypertension. 6. Renal function is much better. Okay to send home from Nephrology standpoint. Follow up with the clinic in 1 week. Advised to have a good diet to get hydration. 7. Acidosis. We will monitor. Job ID: [id number]
[2018-11-05] MEDS: Levofloxacin 500 mg/D5W 250 MG in Premix Bag 1 BAG IVPB SCH (11:15)
[2018-11-05 11:26] VITALS: BP 128/71; TEMP 97.7
--- NOTE | 2018-11-05 17:08 | DIS ---
DATE OF ADMISSION: 11/01/2018 DATE OF DISCHARGE: 11/05/2018 DISCHARGE DIAGNOSES: 1. Ileus secondary to dehydration and gastroenteritis and obstructive uropathy. 2. Obstructive uropathy with acute renal failure. CONSULTATIONS: 1. Dr. Antoine, Nephrology. 2. Dr. Colon, Urology . OTHER PAST HISTORY: Hypertension, coronary artery disease without history of myocardial infarction, coronary stents placed 14 years ago in [place]. Scratch Finisher, Dr. Acosta. The patient had a cardiac stress test 2 weeks prior to this admission, noted to have renal function at that time. He was contemplating, undergoing surgery for his knees, but has not seen orthopedic surgeon yet. No history of diabetes. HISTORY: A 78-year-old male patient, who presents with 6-day history of obstipation, abdominal bloating, nausea, and vomiting. He denied diarrhea. He had a colonoscopy 10 years ago in [place] that was normal. He was told that he did not need to have this repeated. He has only had a laparoscopic cholecystectomy in the past. The patient was considering having knee surgery he saw drawer upfitter in [place]. Two weeks prior to this admission, he underwent cardiac stress testing that was normal. At that time, his renal function was normal. I personally called his drawer upfitter office, Dr. Acosta in [place]. His stress test was normal. Renal function was normal. On this admission, however, he was admitted with a hemoglobin of 16 and white count of 9. Sodium 139, BUN of 53, and creatinine 5.77, bilirubin 1.5, and GFR 10. The patient was admitted, underwent serial x-rays, and he had an ileus. NG tube was in place, had 230 to 250 mL out through his NG tube. He was oliguric, although not aneuric initially. It was felt that this would improve with hydration, but in the first 24 hours, it did not. Thus, Nephrology, Dr. Antoine was consulted. Noncontrast CAT scan revealed obstructive uropathy and atrophic right kidney. Dr. Colon was consulted and cystoscopy and retrograde pyelogram was performed and a double-J ureteral stent placed on the left and attempted on the right. The right could not be decompressed and was felt to be chronically obstructed and probably kidney. On the left, he did have adequate decompression. The patient had a small bowel follow-through that was normal, possibly slightly late secondary to ileus. He had bowel movements. His NG tube was removed. He convalesced and tolerated regular diet. He has been discharged home at this time. He will follow up with Dr. Colon and follow up with Dr. Antoine. By the time of discharge, his white count was 8, hemoglobin 15. His sodium 138, potassium 4.3, chloride 115, carbon dioxide 16, BUN 34, creatinine 1.9, and GFR 34 in last 24 hours. His urine output is 3725. Dr. Colon removed his Ovalles the morning of discharge. As noted above, he will follow up with Dr. Pack as needed, follow up with Dr. Antoine in 2 to 3 weeks, follow up with Dr. Colon in 2 weeks. In addition to his home medications, send him home on Levaquin, Avodart, and Flomax. The patient did not require dialysis this hospitalization. Job ID: [id number]
--- NOTE | 2018-11-06 13:33 | EKG ---
Test Reason : Blood Pressure : / mmHG Vent. Rate : 094 BPM Atrial Rate : 094 BPM P-R Int : 154 ms QRS Dur : 082 ms QT Int : 344 ms P-R-T Axes : 054 075 049 degrees QTc Int : 430 ms Normal sinus rhythm Normal ECG Confirmed by SHEEBA MENDEZ DO ([id number]), editorial specialist TUAN SARMIENTO ([id number]) on 11/06/2018 1:33:36 PM Referred By: Confirmed By:SHEEBA MENDEZ DO
== END 2018-11-05 13:30 | disposition home or self-care (01) | DRG 660 ==
LOC: ERS 06:18 → SURG A 07:52
PROVIDERS: ADMIT Specialist; ATTEND Specialist
PROC: BT1F1ZZ Fluoroscopy of Left Kidney, Ureter and Bladder using Low Osmolar Contrast (ICD-10-PCS; principal; 2018-11-03)
PROC: 0T788DZ Dilation of Bilateral Ureters with Intraluminal Device, Via Natural or Artificial Opening Endoscopic (ICD-10-PCS; 2018-11-03)
PROC: BT141ZZ Fluoroscopy of Kidneys, Ureters and Bladder using Low Osmolar Contrast (ICD-10-PCS; 2018-11-03)
DX: N13.2 Hydronephrosis with renal and ureteral calculous obstruction (principal); K56.699 Other intestinal obstruction unspecified as to partial versus complete obstruction; Z68.41 Body mass index [BMI] 40.0-44.9, adult; N17.9 Acute kidney failure, unspecified; I25.10 Atherosclerotic heart disease of native coronary artery without angina pectoris; E66.9 Obesity, unspecified; I12.9 Hypertensive chronic kidney disease with stage 1 through stage 4 chronic kidney disease, or unspecified chronic kidney disease; N18.9 Chronic kidney disease, unspecified; E86.0 Dehydration; K52.9 Noninfective gastroenteritis and colitis, unspecified; Z88.2 Allergy status to sulfonamides; Z88.8 Allergy status to other drugs, medicaments and biological substances; Z90.49 Acquired absence of other specified parts of digestive tract; Z90.89 Acquired absence of other organs; I25.2 Old myocardial infarction; Z95.5 Presence of coronary angioplasty implant and graft
CPT/HCPCS: 36415; 71045; 74018; 74019; 74022; 74176; 74250; 74420; 76770; 80048; 80053; 81015; 83690; 84484; 85025; 85610; 85730; 87086; 93005; 96361; 96372; 96374; C1752; C1758; C1769; J0131; J0360; J0500; J1100; J1644; J1956; J2001; J2405; J2704; J3010; Q9963; S0028

== ENCOUNTER 2018-11-24 08:52 | Outpatient (CLI) | payer MEDICARE ==
[2018-11-24 10:08] LABS: Hemoglobin 14.8 g/dL (14.0-18.0); Mean Corpuscular HGB CONC 33.1 g/dL (32.0-36.0); Mean Corpuscular Hemoglobin 32.9 pg (27.0-31.0); Mean Corpuscular Volume 99.3 fL (78.0-98.0); Mean Platelet Volume 9.4 fL (7.4-10.4); Platelet Count 147 thou/uL (130-400); RBC Distribution Width 12.3 % (11.5-14.5); White Blood Cell (WBC) Count 5.6 thou/uL (4.8-10.8)
[2018-11-24 10:15] LABS: PTT 33.4 SEC (22.9-36.1); Prothrombin Time 13.2 SEC (12.0-14.7)
[2018-11-24 10:28] LABS: Anion Gap 14 mmol/L (10-20); BUN (Urea Nitrogen) 15 mg/dL (8.4-25.7); Calc. Creatinine Clearance 0 mL/min (70-130); Calcium 9.5 mg/dL (7.8-10.44); Carbon Dioxide 26 mmol/L (23-31); Chloride 108 mmol/L (98-107); Estimated GFR-MDRD 39; Glucose 120 mg/dL (83-110); Potassium 4.9 mmol/L (3.5-5.1); Sodium 143 mmol/L (136-145)
[2018-11-24 12:34] LABS: Bacteria/HPF None Seen HPF (None Seen); Bilirubin Negative (Negative); Blood, Urine 3+ (Negative); Clarity Turbid (Clear); Glucose, Urine (Dipstick) Normal (Negative); Leukocyte 500 Leu/uL (Negative); Nitrite Negative (Negative); Protein, Urine (Dipstick) 70 mg/dL (Neg-Trace); RBC/HPF Greater than 50 HPF (0-3); Squamous Epithelial None Seen HPF (0-3); Urobilinogen Normal mg/dL (Less than 2); WBC/HPF Greater than 50 HPF (0-3)
--- NOTE | 2018-11-24 18:15 | EKG ---
Test Reason : Blood Pressure : / mmHG Vent. Rate : 074 BPM Atrial Rate : 074 BPM P-R Int : 176 ms QRS Dur : 088 ms QT Int : 388 ms P-R-T Axes : 068 080 055 degrees QTc Int : 430 ms Normal sinus rhythm with sinus arrhythmia Normal ECG When compared with ECG of 01-NOV-2018 06:27, No significant change was found Confirmed by DR. Tanner GALVEZ ([id number]) on 11/24/2018 6:14:47 PM Referred By: LYNN Confirmed By:DR. Tanner GALVEZ
== END 2018-11-24 08:53 | disposition home or self-care (01) ==
LOC: LABBT 08:52
PROVIDERS: ATTEND Urology
DX: Z01.818 Encounter for other preprocedural examination (principal); N20.0 Calculus of kidney
CPT/HCPCS: 80048; 81001; 85027; 85610; 85730; 87077; 87086; 93005; 93010

== ENCOUNTER 2018-12-08 08:46 | Day surgery (SDC) | payer MEDICARE ==
[2018-11-24 09:20] VITALS: BMI 40.8
[2018-12-08] MEDS ORDERED: cefTRIAXone\\ROCEPHIN 2 GM VIAL ONE (12:45)
[2018-12-08] MEDS ORDERED: Sodium Chloride 0.9% 100 ML ONE (12:46)
[2018-12-08] MEDS ORDERED: Fentanyl 100 MCG/2 ML VIAL ONE (12:48)
[2018-12-08] MEDS ORDERED: Iothalamate Meglumine 60% 50 ML VIAL FS ONE (13:15)
[2018-12-08] MEDS ORDERED: Albuterol Sulfate HFA (OR ONLY) ONE (13:45)
[2018-12-08] MEDS ORDERED: Promethazine HCl 25 MG/ML VIAL SLOW IVP PRN (14:47)
[2018-12-08] MEDS ORDERED: HYDROmorphone 2 MG/ML VIAL SLOW IVP PRN (14:47)
[2018-12-08] MEDS ORDERED: Ondansetron HCl/PF 4 MG/2 ML Vial IVP PRN (14:47)
[2018-12-08] MEDS ORDERED: Meperidine HCl/PF 25 MG/ML VIAL SLOW IVP PRN (14:47)
[2018-12-08] MEDS ORDERED: Promethazine HCl 25 MG/ML VIAL IM PRN (14:47)
[2018-12-08] MEDS ORDERED: Ketorolac Tromethamine 30 MG/ML VIAL IVP PRN (14:47)
--- NOTE | 2018-12-08 15:17 | RAD ---
Retrograde pyelogram: HISTORY: Stone manipulation, left stent placement COMPARISON: 11/03/2018 4 portable fluoroscopic spot images are presented for interpretation. Stone manipulation changes are noted with several renal calculi noted. Following the manipulation, a left ureteral stent is placed. IMPRESSION: Image documentation for stone manipulation and the left ureteral stent placement.
[2018-12-08] MEDS ORDERED: Phenazopyridine HCl 97.5 MG TABLET ONE (15:36)
--- NOTE | 2018-12-08 21:36 | OP ---
DATE OF PROCEDURE: 12/08/2018 PREOPERATIVE DIAGNOSES: 1. A 78-year-old male with history of bilateral ureteral renal calculi with atrophic right kidney, likely nonfunctioning. 2. History of left 1.4 cm x 1 cm ureteropelvic junction stone, 4 mm left lower pole stone. 3. Benign prostatic hyperplasia. POSTOPERATIVE DIAGNOSES: 1. A 78-year-old male with history of bilateral ureteral renal calculi with atrophic right kidney, likely nonfunctioning. 2. History of left 1.4 cm x 1 cm ureteropelvic junction stone, 4 mm left lower pole stone. 3. Benign prostatic hyperplasia. PROCEDURES PERFORMED: Cystoscopy, left 6 x 28 double-J ureteral stent exchange, ureteroscopy, pyeloscopy, laser lithotripsy of large renal stone, i.e. ureteropelvic junction stone migrated into the lower pole, laser lithotripsy, basket extraction, stone extraction, retrograde pyelogram. ANESTHESIA: General. COMPLICATIONS: None apparent. DISPOSITION: To recovery room in stable condition. DESCRIPTION OF PROCEDURE: After an informed consent was signed, the patient was taken to the operating room, placed in a dorsal lithotomy position with the genital area prepped and draped in the usual surgical sterile fashion. Bilateral JOSE CARLOS hose SCDs were provided. Broad-spectrum antibiotics given. A 22-Romanian cystoscope was utilized for cystoscopy, which demonstrated a moderately obstructing BPH. There was a high median bar with suggestion of early median lobe, however, uos away from the median lobe. It was suggestive an early median lobe with no gross intravesical median lobe per se. There was a high median bar component in the lateral lobes, that were moderately obstructing. Bladder was entered, which demonstrated a previous left ureteral stent. We removed to the level of the meatus; however, this did migrate out. Therefore, we passed a 5-Romanian open-ended catheter, and the left ureter was intubated with an open-ended catheter to the level of the proximal ureter, and a 0.35 Sensor wire was placed into the left mid to upper pole. A 10-Romanian dual-lumen access sheath was then placed, and a retrograde pyelogram was performed demonstrating the stone had migrated from the UPJ to the lower to midpole. This was large in nature and radiopaque. At this time, a second service working wire 0.35 Super Stiff was placed into the left upper pole. We tried to pass a 13, 15 sheath as he had had a ureteral stent for while there, however, would not pass at the level of the distal ureter. Therefore, we did not forcibly engage. We subsequently transitioned to an 11/13-Romanian x 46 cm navigator, and this did pass to the level of the proximal ureter with ease. A flexible ureteroscope was then advanced over the working wire to the level of the renal pelvis. We surveyed the collecting system. The stone was seen in the left lower pole. We used a 273 micron ball-tip laser fiber, and we laser lithotripsied the stone. When the stone was a little smaller, we did move the stone into the left upper pole for more approachable laser lithotripsy due to infundibular angle. With the stone in the upper pole, we laser lithotripsied the stone into multiple tiny fragments. Those that were amendable to be basket extractor were extracted. We did at the end of the procedure what remained were tiny punctate stone debris which would most likely pass. I did survey the lower pole. We did find the 4 mm stone, and this was basket extracted uneventfully. At the end of the procedure, what remained were tiny punctate stone debris which he would likely pass on his own. We surveyed the ureter, which demonstrated no evidence of ureteral trauma, defect, or stone nidus of concern. A 6 x 28 double-J ureteral stent was replaced, however, this was somewhat redundant as the proximal coil was in the lower pole with an angle in the upper pole; however , it was in good position with good nidus, clear coil in the bladder. The bladder was completely emptied, and he tolerated the procedure well. I did give him a refill for his Flomax and dutasteride as he does have significant BPH component on cystoscopy. He was provided Omnicef 300 mg one p.o. b.i.d. for 10 days. KUB x- ray, prescription were provided, tramadol 50 mg #30, Azo p.r.n., Colace p.r.n. He was instructed to obtain a KUB 1 day prior to his appointment with me for cysto stent pull. If KUB demonstrates no significant stone or nidus of burden in the ureter , we will perform cysto stent pull under local on December 16 at 8:00 a.m. Job ID: [id number] [facility]
== END 2018-12-08 18:15 | disposition home or self-care (01) ==
LOC: SDC 08:46
PROVIDERS: ATTEND Urology
PROC: 0TF48ZZ Fragmentation in Left Kidney Pelvis, Via Natural or Artificial Opening Endoscopic (ICD-10-PCS; principal; 2018-12-08)
PROC: 0T778DZ Dilation of Left Ureter with Intraluminal Device, Via Natural or Artificial Opening Endoscopic (ICD-10-PCS; 2018-12-08)
DX: N20.0 Calculus of kidney (principal); N26.1 Atrophy of kidney (terminal); N40.1 Benign prostatic hyperplasia with lower urinary tract symptoms; N13.8 Other obstructive and reflux uropathy; R39.11 Hesitancy of micturition; R39.15 Urgency of urination; I73.9 Peripheral vascular disease, unspecified; Z87.891 Personal history of nicotine dependence; Z79.899 Other long term (current) drug therapy; Z88.2 Allergy status to sulfonamides; Z88.8 Allergy status to other drugs, medicaments and biological substances; Z91.018 Allergy to other foods
CPT/HCPCS: 74420; 76000; 82365; 88300; J0131; J0696; J3010; J3490

== ENCOUNTER 2018-12-15 08:22 | Outpatient (CLI) | payer MEDICARE ==
--- NOTE | 2018-12-15 11:18 | RAD ---
ABDOMEN SUPINE TWO VIEWS: HISTORY: Renal calculus. FINDINGS: There is a left ureteral stent. The upper pigtail has been somewhat elongated within the left renal p rosalva. Bowel gas pattern again shows mildly distended gas-filled loops of small bowel with stool and gas throughout the colon. No definite urinary tract calcification identified. POS: OFF
== END 2018-12-15 08:23 | disposition home or self-care (01) ==
LOC: RAD 08:22
PROVIDERS: ATTEND Urology
DX: N20.0 Calculus of kidney (principal)
CPT/HCPCS: 74018

== ENCOUNTER 2019-03-21 11:48 | Outpatient (CLI) | payer MEDICARE ==
--- NOTE | 2019-03-21 13:38 | RAD ---
KUB: DATE: 03/21/2019 HISTORY: Renal calculi. COMPARISON: 12/15/2018 exam. FINDINGS: The bowel gas pattern is nonobstructed. A mild amount of gas in the colon and small bowel obscures de tail. I do not appreciate any definitive renal calculi on this exam. Vascular calcifications are note d. The distal right ureteral calculus noted on the previous examination has migrated slightly distall y. This measures in the 12.0 mm range. IMPRESSION: 1. No definitive renal calculi. 2. Distal right ureteral calculus appears to be slightly distal in position as compared to the previ ous exam. POS: MASTER
--- NOTE | 2019-03-21 15:35 | ULT ---
RENAL ULTRASOUND: HISTORY: Renal insufficiency. History of kidney stones. Atrophic kidney. COMPARISON: CT examination from 11/02/2018. TECHNIQUE: Real-time imaging of the right and left kidneys was performed. FINDINGS: The right kidney is more difficult to visualize. It shows cortical thinning. It does measure approxim ately 11 cm in length. There is minimal dilatation to the right collecting system. The left kidney is much better visualized. It is 11.5 cm in length. No signs of cyst, mass or obstruction. The bladder region appears unremarkable. IMPRESSION: Cortical thinning involving the right kidney with some mild right sided hydronephrosis. Appearance is felt to be fairly similar to the previous CT study. POS: MASTER
== END 2019-03-21 11:49 | disposition home or self-care (01) ==
LOC: BICULT 11:48
PROVIDERS: ATTEND Urology
DX: N26.1 Atrophy of kidney (terminal) (principal); N13.2 Hydronephrosis with renal and ureteral calculous obstruction; Z87.448 Personal history of other diseases of urinary system; N28.89 Other specified disorders of kidney and ureter
CPT/HCPCS: 36415; 74018; 76770; 80048; 81001; 83970; 84550; 87086

== ENCOUNTER 2019-04-21 14:32 | Outpatient (CLI) | payer MEDICARE ==
[2019-04-21 17:22] LABS: Hemoglobin 15.5 g/dL (14.0-18.0); Mean Corpuscular HGB CONC 30.6 g/dL (32.0-36.0); Mean Corpuscular Hemoglobin 30.2 pg (27.0-31.0); Mean Corpuscular Volume 98.5 fL (78.0-98.0); Mean Platelet Volume 8.5 fL (7.4-10.4); Platelet Count 169 thou/uL (130-400); RBC Distribution Width 12.1 % (11.5-14.5); Red Blood Cell (RBC) Count 5.15 mill/uL (4.70-6.10); White Blood Cell (WBC) Count 7.4 thou/uL (4.8-10.8)
[2019-04-21 17:28] LABS: PTT 33.3 SEC (22.9-36.1); Prothrombin Time 13.3 SEC (12.0-14.7)
[2019-04-21 17:35] LABS: Bacteria/HPF None Seen HPF (None Seen); Bilirubin Negative (Negative); Blood, Urine Negative (Negative); Clarity Clear (Clear); Glucose, Urine (Dipstick) Normal (Negative); Leukocyte Negative Leu/uL (Negative); Nitrite Negative (Negative); Protein, Urine (Dipstick) Negative (Neg-Trace); RBC/HPF 0-3 HPF (0-3); Squamous Epithelial None Seen HPF (0-3); Urobilinogen Normal mg/dL (Less than 2); WBC/HPF 0-3 HPF (0-3)
[2019-04-21 17:40] LABS: Anion Gap 11 mmol/L (10-20); BUN (Urea Nitrogen) 17 mg/dL (8.4-25.7); Calc. Creatinine Clearance 0 mL/min (70-130); Calcium 9.1 mg/dL (7.8-10.44); Carbon Dioxide 27 mmol/L (23-31); Chloride 104 mmol/L (98-107); Estimated GFR-MDRD 44; Glucose 129 mg/dL (83-110); Potassium 3.9 mmol/L (3.5-5.1); Sodium 138 mmol/L (136-145)
== END 2019-04-21 14:33 | disposition home or self-care (01) ==
LOC: LABBT 14:32
PROVIDERS: ATTEND Urology
DX: Z01.818 Encounter for other preprocedural examination (principal); N20.2 Calculus of kidney with calculus of ureter; N40.1 Benign prostatic hyperplasia with lower urinary tract symptoms; R39.11 Hesitancy of micturition; R39.15 Urgency of urination; N26.1 Atrophy of kidney (terminal); Z87.448 Personal history of other diseases of urinary system; Z87.19 Personal history of other diseases of the digestive system
CPT/HCPCS: 80048; 81001; 85027; 85610; 85730; 87086; 93005; 93010

== ENCOUNTER 2019-05-04 06:47 | Day surgery (SDC) | payer MEDICARE ==
[2019-04-21 16:27] VITALS: BMI 42.5
[2019-05-04] MEDS ORDERED: Levofloxacin 500 mg/D5W 100 ml Premix Bag ONE (08:32)
[2019-05-04] MEDS ORDERED: Fentanyl 100 MCG/2 ML VIAL ONE (09:18)
[2019-05-04] MEDS ORDERED: Ketamine 50 MG/ML (10ML VIAL) ONE (09:34)
[2019-05-04] MEDS ORDERED: Glycopyrrolate 0.2 MG/ML 5 ML SYRINGE ONE (10:44)
[2019-05-04] MEDS ORDERED: PROPOFOL 200 MG/20 ML VIAL ONE (10:44)
[2019-05-04] MEDS ORDERED: Lidocaine 1% PF 5 ML VIAL ONE (10:44)
[2019-05-04] MEDS ORDERED: Phenazopyridine HCl 97.5 MG TABLET ONE (11:07)
--- NOTE | 2019-05-04 12:33 | OP ---
DATE OF PROCEDURE: 05/04/2019 PREOPERATIVE DIAGNOSIS: A 78-year-old male with history of benign prostatic hyperplasia, International Prostate Symptom Score of 27. POSTOPERATIVE DIAGNOSIS: A 78-year-old male with history of benign prostatic hyperplasia, International Prostate Symptom Score of 27. PROCEDURES PERFORMED: Cystoscopy, UroLift implant x7. ANESTHESIA: TIVA. COMPLICATIONS: None apparent. DISPOSITION: To recovery room in stable condition. INDICATIONS FOR PROCEDURE AND HISTORY: Mr. Huston is a 78-year-old male, whom I seen as an inpatient consultation initially, he has presented with ureteral calculi, BPH. He has been on dual medical therapy, and desires to proceed with UroLift. Risks and complications of the procedure were reviewed with him in detail including, but not limited to, bleeding, pain, infection, injury to adjacent organs such as neurovascular bundle, ureteral orifices, chronic pain, possible incrustation of implant, migration, and secondary treatment. We discussed alternative options of TURP in medical observation. He desired to proceed with UroLift. DESCRIPTION OF PROCEDURE: After an informed consent was signed, the patient was taken to the operating room, placed in a dorsal lithotomy position with the genital area prepped and draped in the usual surgical sterile fashion. A 21-[place] cystoscope was utilized for cystoscopy, which demonstrated normal anterior urethra. There was a subtle bulbar stricture nonobstructing, which did not warrant treatment. Bilobar hyperplasia severe was noted. Upon entering the bladder, diffuse trabeculation noted consistent with chronic outlet obstruction. The ureteral orifices were about 3 to 4 mm proximal to the bladder neck. At this time, we transitioned to UroLift 21-[place] cystoscope with a visual obturator. Subsequently, we passed the UroLift implant and we treated the left urethra first. Care was taken to stay at least 1.5 cm proximal to the bladder neck and total of three implants on the left, total of four on the right lobe were placed with complete seven UroLift implants. An anterior channel was created. 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 Therefore, the apical component did not warrant treatment. He does have a large prostate volume with increased urethral length. The fourth implant on the right was stacked at the level of the bladder neck as there was a pillowing tissue at the level of the bladder neck. At the end of the procedure, bladder neck was patent with anterior channel created with improvement of his obstructing lateral lobes. He tolerated the procedure well and transported to the recovery room in stable condition. His prostate does have some varicosities and prominent vascularity. An 18-[place] 30 mL [place] catheter was placed. We will watch his urine output for degree of hematuria. Pending degree of hematuria, we will initiate voiding trial versus discharge with indwelling Ovalles catheter overnight. He is discharged with ciprofloxacin 250 mg one p.o. b.i.d. for 5 days, Azo p.r.n. Job ID: [id number] [facility]
== END 2019-05-04 16:41 | disposition home or self-care (01) ==
LOC: SDC 06:47
PROVIDERS: ATTEND Urology
PROC: 0T7D8DZ Dilation of Urethra with Intraluminal Device, Via Natural or Artificial Opening Endoscopic (ICD-10-PCS; principal; 2019-05-04)
DX: N40.1 Benign prostatic hyperplasia with lower urinary tract symptoms (principal); R39.11 Hesitancy of micturition; R39.15 Urgency of urination; N32.89 Other specified disorders of bladder; N35.912 Unspecified bulbous urethral stricture, male; N26.1 Atrophy of kidney (terminal); I73.9 Peripheral vascular disease, unspecified; Z87.891 Personal history of nicotine dependence; Z79.82 Long term (current) use of aspirin; Z79.899 Other long term (current) drug therapy; Z88.2 Allergy status to sulfonamides; Z88.8 Allergy status to other drugs, medicaments and biological substances; Z91.018 Allergy to other foods; Z95.5 Presence of coronary angioplasty implant and graft
CPT/HCPCS: C1889; J1956; J2001; J2704; J3010

== ENCOUNTER 2019-11-23 09:34 | Emergency (ER) | payer MEDICARE | END 2019-11-23 10:13 | disposition home or self-care (01) | LOC: ERS 09:34 | DX: S50.01XA Contusion of right elbow, initial encounter (principal); I10 Essential (primary) hypertension; Z87.891 Personal history of nicotine dependence; W18.30XA Fall on same level, unspecified, initial encounter | CPT/HCPCS: 99283 ==

== ENCOUNTER 2019-12-27 09:02 | Emergency (ER) | payer MEDICARE ==
[2019-12-27] MEDS ORDERED: Morphine 4 MG/ML VIAL ONE (10:29)
[2019-12-27] MEDS ORDERED: Diazepam 5 MG TAB ONE (10:29)
[2019-12-27 11:12] LABS: #Eosinphils 0.1 thou/uL (0.0-0.7); #Lymphocytes 0.9 thou/uL (1.20-3.40); #Monocytes 0.3 thou/uL (0.11-0.59); #Neutrophils 2.8 thou/uL (1.40-6.50); %Eosinophils 2.4 % (0.0-10.0); %Lymphocytes 22.3 % (21.0-51.0); %Monocytes 7.7 % (0.0-10.0); %Neutrophils 67.7 % (42.0-75.0); Hemoglobin 16.5 g/dL (14.0-18.0); Mean Corpuscular HGB CONC 33.2 g/dL (32.0-36.0); Mean Corpuscular Hemoglobin 34.1 pg (27.0-31.0); Mean Platelet Volume 8.5 fL (7.4-10.4); Platelet Count 156 thou/uL (130-400); RBC Distribution Width 12.4 % (11.5-14.5); Red Blood Cell (RBC) Count 4.85 mill/uL (4.70-6.10); White Blood Cell (WBC) Count 4.1 thou/uL (4.8-10.8)
[2019-12-27 11:39] LABS: ALT (SGPT) 47 U/L (8-55); AST (SGOT) 45 U/L (5-34); Albumin 3.5 g/dL (3.4-4.8); Alkaline Phosphatase 83 U/L (40-110); Anion Gap 10 mmol/L (10-20); BUN (Urea Nitrogen) 17 mg/dL (8.4-25.7); Bilirubin, Total 0.8 mg/dL (0.2-1.2); Calc. Creatinine Clearance 0 mL/min (70-130); Calcium 8.7 mg/dL (7.8-10.44); Carbon Dioxide 26 mmol/L (23-31); Chloride 106 mmol/L (98-107); Estimated GFR-MDRD 58; Globulin 3.2 g/dL (2.4-3.5); Glucose 118 mg/dL (83-110); Potassium 4.2 mmol/L (3.5-5.1); Protein, Total 6.7 g/dL (5.8-8.1); Sodium 138 mmol/L (136-145)
--- NOTE | 2019-12-27 13:36 | MRI ---
MRI OF THORACIC SPINE WITHOUT CONTRAST: 12/27/19 INDICATIONS: Back pain. FINDINGS: Thoracic vertebrae maintain normal height and alignment. Vertebral body signal is normal. There is no edema or compression deformity. Mild degenerative osteophytes. Disc spaces are preserved. Minimal disc bulge centrally at T6-T7 minimally flattens the anterior thecal sac. No central canal or foraminal stenosis. T7-T8, there is a small focal disc protrusion centrally indenting the anterior thecal sac. No signifi cant cord impingement. The small protrusion measures approximately 3 to 4 mm AP dimension in the axia l plane. T8-T9, small protrusion centrally flattens the anterior thecal sac. No cord impingement. T9-T10, minimal disc bulge abuts the thecal sac. No central canal or foraminal stenosis. T10-T11, mild disc bulge flattens the thecal sac. T11-T12, minimal disc bulge paracentrally on the right flattens the anterior thecal sac on the right. T12-L1, no significant disc bulge apparent. Cord signal is normally preserved. IMPRESSION: 1. There are mild to moderate degenerative change of the thoracic spine with anterior osteophyte s. Disc spaces are preserved. 2. There are disc bulges in the mid thoracic spine as described above with small protrusion at T 7-T8 and T8-T9 as noted above. POS: AGW
--- NOTE | 2019-12-27 14:06 | MRI ---
MRI LUMBAR SPINE WITHOUT CONTRAST: HISTORY: A 79-year-old male with bilateral leg weakness. FINDINGS: Vertebral body heights and marrow signal are maintained. There are bilateral par articularis defects at L5 level with minimal anterolisthesis of L5 over S1. Conus medullaris ends at L1-2 level. There are degenerative changes manifested by disc desiccation, broad based disc bulges, osteophyte fo rmation, facet hypertrophic changes, and ligamentum flavum hypertrophic changes at multiple levels. These result in mild bilateral neural foraminal stenosis at L2-3, moderate right and mild left neural foraminal stenosis at L3-4, bilateral moderate neural foraminal stenosis at L4-5, mild right and sev ere left neural foraminal stenosis at L5-S1. There is a left foraminal/foraminal and far lateral dis k protrusion at L5-S1 level causing compression of the exiting nerve root. There is right-sided hydroureteronephrosis with change in caliber of the right ureter at the pelvic i nlet. There is a 15 mm complex-appearing cystic mass arising from the posterior cortex of the right kidney. IMPRESSION: 1. Lumbar spondylosis with multilevel stenotic changes. 2. Severe left neural foraminal stenosis at L5-S1 level with a left foraminal/far lateral disk protr usion causing severe compression of the exiting nerve root. 3. Probable obstructive changes in the right ureter and mass in the right kidney. These should be e valuated with a CT scan (with and without IV contrast) using the urography protocol. POS: AMANDA
== END 2019-12-27 13:58 | disposition home or self-care (01) ==
LOC: ERS 09:02
DX: M47.26 Other spondylosis with radiculopathy, lumbar region (principal); M48.07 Spinal stenosis, lumbosacral region; N13.30 Unspecified hydronephrosis; I10 Essential (primary) hypertension; Z87.891 Personal history of nicotine dependence; Z79.899 Other long term (current) drug therapy; Z79.82 Long term (current) use of aspirin
CPT/HCPCS: 36415; 72146; 72148; 80053; 85025; 96372; J2270

== ENCOUNTER 2020-11-20 08:42 | Outpatient (CLI) | payer MEDICARE, OTHER | END 2020-11-20 08:43 | disposition home or self-care (01) | LOC: NM 08:42 | PROVIDERS: ATTEND Urology | DX: N20.2 Calculus of kidney with calculus of ureter (principal); N26.1 Atrophy of kidney (terminal); R79.89 Other specified abnormal findings of blood chemistry; Z87.448 Personal history of other diseases of urinary system | CPT/HCPCS: 76770; 78072; A9500 ==

== ENCOUNTER 2020-11-29 10:21 | Outpatient (CLI) | payer MEDICARE | END 2020-11-29 10:22 | disposition home or self-care (01) | LOC: RAD 10:21 | PROVIDERS: ATTEND Family Medicine | DX: N20.0 Calculus of kidney (principal) | CPT/HCPCS: 74018 ==

== ENCOUNTER 2021-12-05 10:19 | Outpatient (CLI) | payer MEDICARE | END 2021-12-05 10:20 | disposition home or self-care (01) | LOC: BICCT 10:19 | PROVIDERS: ATTEND Urology | DX: N20.2 Calculus of kidney with calculus of ureter (principal); N26.1 Atrophy of kidney (terminal); N28.89 Other specified disorders of kidney and ureter | CPT/HCPCS: 36415; 74176; 80048; 81001; 84550 ==

== ENCOUNTER 2021-12-25 09:44 | Outpatient (CLI) | payer MEDICARE ==
[2021-12-25] MEDS ORDERED: Iopamidol-370 76% 500 ML 1 ML ONE (14:28)
== END 2021-12-25 09:45 | disposition home or self-care (01) ==
LOC: BICCT 09:44
PROVIDERS: ATTEND Urology
DX: N26.1 Atrophy of kidney (terminal) (principal); N28.89 Other specified disorders of kidney and ureter
CPT/HCPCS: 74170; 82565; Q9967

== ENCOUNTER 2022-06-24 13:06 | Outpatient (CLI) | payer MEDICARE ==
[~2022-06-24 13:06] MED LIST: Furosemide 40 MG/4 ML VIAL ONE
== END 2022-06-24 13:07 | disposition home or self-care (01) ==
LOC: NM 13:06
PROVIDERS: ATTEND Urology
DX: C64.1 Malignant neoplasm of right kidney, except renal pelvis (principal); N26.1 Atrophy of kidney (terminal); R93.422 Abnormal radiologic findings on diagnostic imaging of left kidney; R93.421 Abnormal radiologic findings on diagnostic imaging of right kidney
CPT/HCPCS: 78708; A4641; A9562; J1940

== ENCOUNTER 2023-04-21 09:16 | Outpatient (CLI) | payer MEDICARE ==
[2023-04-21] MEDS ORDERED: Iopamidol-370 76% 500 ML MDV (1 ML CHARGE) ONE (10:18)
== END 2023-04-21 09:17 | disposition home or self-care (01) ==
LOC: BICCT 09:16
PROVIDERS: ATTEND Urology
DX: C64.1 Malignant neoplasm of right kidney, except renal pelvis (principal); N28.89 Other specified disorders of kidney and ureter; N20.1 Calculus of ureter; M43.17 Spondylolisthesis, lumbosacral region
CPT/HCPCS: 36415; 74177; 80048; 81001; 87086; Q9967